=== PATIENT | female | born 1945 | race Caucasian/White ===

== ENCOUNTER 2019-01-24 14:34 | Emergency (ER) | payer MEDICARE ==
[~2019-01-24] VITALS: Ht 170.2 cm; Wt 76.6 kg
[2019-01-24 14:35] VITALS: BP 124/77
--- NOTE | 2019-01-24 14:47 | NUR ---
ER PA WAS IN TO SEE PT.
--- NOTE | 2019-01-24 15:03 | NUR ---
HOSPITAL FELLOW AT BEDSIDE FOR SPLINT APPLICATION.
[2019-01-24] MEDS ORDERED: IBUPROFEN 200 MG TABLET ONE (16:05)
--- NOTE | 2019-01-24 16:09 | NUR ---
L POSTERIOR LONG ARM SPLINT APPLIED BY CONSERVATION EDUCATOR, CMS INTACT. SLING PROVIDED. PT C/O INCREASED L ARM PAIN. DECLINED NORCO. ER PA NOTIFIED, PT MEDICATED WITH IBUPROFEN. D/C INSTRUCTIONS, MEDS & F/U APPT RV'WD WITH PT, SHE VERBALIZED UNDERSTANDING. RX GIVEN X1. PT TO F/U WITH [facility] AT HOME IN [place]. PT AMBULATED OUT OF ED WITH WITHOUT DIFFICULTY.
[2019-01-24] MEDS ORDERED: IBUPROFEN 200 MG TABLET PO ONE (16:30)
== END 2019-01-24 16:13 | disposition home or self-care (01) ==
LOC: ED 16:10
DX: S52.122A Displaced fracture of head of left radius, initial encounter for closed fracture (principal); I10 Essential (primary) hypertension; E11.9 Type 2 diabetes mellitus without complications; Z87.891 Personal history of nicotine dependence; W01.0XXA Fall on same level from slipping, tripping and stumbling without subsequent striking against object, initial encounter; Y93.89 Activity, other specified; Y92.009 Unspecified place in unspecified non-institutional (private) residence as the place of occurrence of the external cause; Y99.8 Other external cause status
CPT/HCPCS: 29105; 99284